=== PATIENT | male | born 1990 ===

== ENCOUNTER 2017-03-18 09:31 | Emergency (ER) | payer OTHER ==
[2017-03-18 09:33] VITALS: BMI 34.2
[2017-03-18 09:34] VITALS: BP 129/81; PULSE 88; RESP 17; TEMP 98.4; O2SAT 97
[2017-03-18] MEDS ORDERED: Albuterol-Ipratrop 3 mg / 0.5 (3 ml) UD INH STA (10:07)
--- NOTE | 2017-03-18 10:29 | RAD ---
HISTORY: Cough COMPARISON: 02/27/2014 TECHNIQUE: Chest PA and lateral FINDINGS: LUNGS: No active pulmonary disease. PLEURA: No significant pleural effusion identified. No pneumothorax apparent. CARDIOVASCULAR: Normal. OSSEOUS STRUCTURES: No significant abnormalities. VISUALIZED UPPER ABDOMEN: Normal. OTHER FINDINGS: None. IMPRESSION: No active disease.
--- NOTE | 2017-03-18 10:35 | ED PDOC ---
HPI: General Adult Time Seen by Provider: 03/18/17 09:55 Chief Complaint (Nursing): Flu-like Symptoms Chief Complaint (Provider): Cough History Per: Patient History/Exam Limitations: no limitations Onset/Duration Of Symptoms: Days (2) Additional History Per: Patient Additional Complaint(s): 26yo male, no past medical history, presents to ED for evaluation of cough, associated with clear sputum for the apst 2 dyas. Patient also reports associated chills, vomiting x1. He denies any diarrhea, abdominal pain or shortness of breath. No other complaints. Past Medical History Reviewed: Historical Data, Nursing Documentation, Vital Signs Vital Signs: Last Vital Signs Temp 98.4 F 03/18/17 09:49 Pulse 88 03/18/17 09:49 Resp 17 03/18/17 09:49 BP 129/81 03/18/17 09:49 Pulse Ox 97 03/21/17 00:03 - Medical History PMH: Asthma Denies: Bronchitis - Surgical History Surgical History: No Surg Hx - Family History Family History: States: No Known Family Hx, Unknown Family Hx - Home Medications Home Medications: Ambulatory Orders Medication Instructions Recorded Naproxen 500 mg PO Q12 #20 tab 02/19/14 Albuterol HFA [Ventolin HFA 90 1 puff IH Q4 PRN #1 unit 02/27/14 mcg/actuation (8 g)] Prednisone 10 mg PO BID #10 tab 02/27/14 Famotidine [Pepcid] 20 mg PO BID #28 tab 09/14/14 Mupirocin 2% Ointment [Bactroban 1 appl TP BID #1 tube 09/14/14 Ointment] Sulfamethoxazole/Trimethopri 1 tab PO BID #20 tab 09/14/14 [Bactrim Ds 800 mg-160 mg] Naproxen 500 mg PO BID #14 tablet 12/14/15 Albuterol Sulfate [Proair Hfa] 0.09 mg IH Q6H PRN #2 inh 03/22/16 Albuterol 0.083% [Albuterol 0.083% 3 ml IH Q6H PRN #30 neb 03/18/17 Inhal Areli (2.5 mg/3 ml) UD] Ibuprofen [Motrin] 600 mg PO Q6H PRN #20 tab 11/27/17 - Allergies Allergies/Adverse Reactions: Allergies Allergy/AdvReac Type Severity Reaction Status Date / Time strawberry Allergy RASH Verified 12/14/15 08:19 Review of Systems ROS Statement: Except As Marked, All Systems Reviewed And Found Negative Constitutional: Positive for: Chills Respiratory: Positive for: Cough, Sputum (clear). Negative for: Shortness of Breath Gastrointestinal: Positive for: Vomiting. Negative for: Abdominal Pain, Diarrhea Physical Exam - Reviewed Nursing Documentation Reviewed: Yes Vital Signs Reviewed: Yes - Physical Exam Appears: Positive for: Non-toxic, No Acute Distress Head Exam: Positive for: ATRAUMATIC, NORMAL INSPECTION, NORMOCEPHALIC Skin: Positive for: Normal Color Eye Exam: Positive for: Normal appearance, EOMI, PERRL Neck: Positive for: Normal, Supple Cardiovascular/Chest: Positive for: Regular Rate, Rhythm. Negative for: Murmur Respiratory: Positive for: Normal Breath Sounds. Negative for: Respiratory Distress Gastrointestinal/Abdominal: Positive for: Soft. Negative for: Tenderness, Guarding, Rebound Neurologic/Psych: Positive for: Alert, Oriented. Negative for: Motor/Sensory Deficits - ECG O2 Sat by Pulse Oximetry: 97 (RA) Pulse Ox Interpretation: Normal Medical Decision Making Medical Decision Making: Time: 1003 Impression: Rule out flu, viral syndrome, bronchitis, URI Plan: -- Rapid flu -- Chest x-ray -- Duoneb 3ml INH Reassess Scribe Attestation: Documented by Alba Marx acting as a scribe for Gabriella Sawyer MD. Provider Attestation: All medical record entries made by the Scribe were at my direction and personally dictated by me. I have reviewed the chart and agree that the record accurately reflects my personal performance of the history, physical exam, medical decision making, and the department course for this patient. I have also personally directed, reviewed, and agree with the discharge instructions and disposition. Disposition - Clinical Impression Clinical Impression: Viral syndrome - Disposition Referrals: [facility] [Outside] Disposition: Routine/Home Disposition Time: 13:46 Condition: STABLE Prescriptions: Albuterol 0.083% [Albuterol 0.083% Inhal Areli (2.5 mg/3 ml) UD] 3 ml IH Q6H PRN # 30 neb PRN Reason: Shortness Of Breath Ibuprofen [Motrin] 600 mg PO Q6H PRN #20 tab PRN Reason: Pain, Moderate (4-7) Instructions: How to Stop Smoking (ED), Viral Syndrome (ED) Forms: [facility] (Sudanese), [facility] ED School/Work Excuse
[2017-03-18] MEDS ORDERED: Albuterol-Ipratrop 3 mg / 0.5 (3 ml) UD ONE (11:14)
== END 2017-03-18 13:56 | disposition home or self-care (01) ==
LOC: H.ER 09:31
DX: B34.9 Viral infection, unspecified (principal); J45.909 Unspecified asthma, uncomplicated

== ENCOUNTER 2017-08-09 06:13 | Emergency (ER) | payer OTHER ==
[2017-08-09 06:14] VITALS: BMI 34.2
[2017-08-09 06:36] VITALS: TEMP 98.4
--- NOTE | 2017-08-09 07:24 | ED PDOC ---
HPI: Chest Pain Time Seen by Provider: 08/09/17 07:15 Chief Complaint (Nursing): Chest Pain Chief Complaint (Provider): Ches Pain History Per: Patient History/Exam Limitations: no limitations Onset/Duration Of Symptoms: Days (x 4) Current Symptoms Are (Timing): Intermittent Episodes Additional Complaint(s): Singh Hernandez is a 26 y/o male with a past medical history of Asthma, who presents to the ED complaining of intermittent episodes of left sided chest pain associated with arm pain, onset 4 days ago. Patient denies any shortness of breath or nausea. PCP: non provided Past Medical History Reviewed: Historical Data, Nursing Documentation, Vital Signs Vital Signs: Last Vital Signs Temp 98.4 F 08/09/17 06:21 Pulse 74 08/09/17 08:44 Resp 16 08/09/17 08:44 BP 122/74 08/09/17 08:44 Pulse Ox 95 08/09/17 11:33 - Medical History PMH: Asthma Denies: Bronchitis - Surgical History Surgical History: No Surg Hx - Family History Family History: States: Unknown Family Hx - Social History Current smoker - smoking cessation education provided: Yes Alcohol: Social Drugs: Cocaine - Home Medications Home Medications: Ambulatory Orders Medication Instructions Recorded Naproxen 500 mg PO Q12 #20 tab 02/19/14 Albuterol HFA [Ventolin HFA 90 1 puff IH Q4 PRN #1 unit 02/27/14 mcg/actuation (8 g)] Prednisone 10 mg PO BID #10 tab 02/27/14 Famotidine [Pepcid] 20 mg PO BID #28 tab 09/14/14 Mupirocin 2% Ointment [Bactroban 1 appl TP BID #1 tube 09/14/14 Ointment] Sulfamethoxazole/Trimethopri 1 tab PO BID #20 tab 09/14/14 [Bactrim Ds 800 mg-160 mg] Naproxen 500 mg PO BID #14 tablet 12/14/15 Albuterol Sulfate [Proair Hfa] 0.09 mg IH Q6H PRN #2 inh 03/22/16 Albuterol 0.083% [Albuterol 0.083% 3 ml IH Q6H PRN #30 neb 03/18/17 Inhal Areli (2.5 mg/3 ml) UD] Ibuprofen [Motrin] 600 mg PO Q6H PRN #20 tab 03/18/17 Naproxen [Naprosyn] 500 mg PO BID PRN #15 tablet 08/09/17 - Allergies Allergies/Adverse Reactions: Allergies Allergy/AdvReac Type Severity Reaction Status Date / Time strawberry Allergy RASH Verified 12/14/15 08:19 SHIKHA Risk Score for UA/NSTEMI - SHIKHA Risk Score Age > 64: NO 3 or more CAD Risk Factors: NO Known CAD (Stenosis greater than 50%): NO Aspirin use in past 7 days: NO Severe Angina: NO EKG ST changes greater than 0.5mm: NO Positive Cardiac Marker: NO SHIKHA Score: 0 Risk %: 5% Wells Criteria for PE - Wells Criteria for Pulmonary Embolism Clinical Signs and Symptoms of DVT: No P.E is #1 Diagnosis, or Equally Likely: No Heart Rate >100: No Immobilization at least 3 days;Surgery previous 4 weeks: No Previous, objectively diagnosed PE or DVT: No Hemoptysis: No Malignancy w/treatment within 6 months, or palliative: No Total Score: 0 Review of Systems ROS Statement: Except As Marked, All Systems Reviewed And Found Negative Cardiovascular: Positive for: Chest Pain (left side) Respiratory: Negative for: Shortness of Breath Gastrointestinal: Negative for: Nausea Musculoskeletal: Positive for: Arm Pain (left side) Physical Exam - Reviewed Nursing Documentation Reviewed: Yes Vital Signs Reviewed: Yes - Physical Exam Appears: Positive for: Non-toxic, No Acute Distress Skin: Positive for: Normal Color, Warm, Dry Eye Exam: Positive for: Normal appearance, EOMI, PERRL Neck: Positive for: Supple Cardiovascular/Chest: Positive for: Regular Rate, Rhythm, Other (tenderness with palpation of left anterior chest wall). Negative for: Chest Non Tender, Murmur Respiratory: Positive for: Normal Breath Sounds. Negative for: Respiratory Distress Gastrointestinal/Abdominal: Positive for: Normal Exam, Soft. Negative for: Tenderness Extremity: Positive for: Normal ROM. Negative for: Tenderness Neurologic/Psych: Positive for: Alert, Oriented - Laboratory Results Result Diagrams: 08/09/17 07:38 08/09/17 07:38 - ECG Interpretation Of ECG: NSR @ 82, no ST-T changes. O2 Sat by Pulse Oximetry: 95 (RA) Pulse Ox Interpretation: Normal Medical Decision Making Medical Decision Making: Time:719 Initial Impression: atypical chest pain, costochondritis, muscular or skeletal pain Initial Plan: --EKG --CMP --Troponin --Urine dipstick --CBC --D Dimer (COAG) --PTT --Prothrombin Time --Chest two views Time: 922 Chest X-Ray FINDINGS: LUNGS: No active pulmonary disease. PLEURA: No significant pleural effusion identified. No pneumothorax apparent. CARDIOVASCULAR: Normal. OSSEOUS STRUCTURES: No significant abnormalities. VISUALIZED UPPER ABDOMEN: Normal. OTHER FINDINGS: None. IMPRESSION: No active disease. Scribe Attestation: Documented by Brianna Quiñonez, acting as a scribe for Gabriella Sawyer MD. Provider Scribe Attestation: All medical record entries made by the Scribe were at my direction and personally dictated by me. I have reviewed the chart and agree that the record accurately reflects my personal performance of the history, physical exam, medical decision making, and the department course for this patient. I have also personally directed, reviewed, and agree with the discharge instructions and disposition. Disposition - Clinical Impression Clinical Impression: Atypical chest pain - Disposition Referrals: [facility] [Outside] Disposition: Routine/Home Disposition Time: 08:30 Condition: STABLE Prescriptions: Naproxen [Naprosyn] 500 mg PO BID PRN #15 tablet PRN Reason: Pain, Moderate (4-7) Instructions: Chest Pain Forms: [employer] [facility] (Kyrgyz), [facility] ED School/Work Excuse
[2017-08-09 07:51] LABS: BASO % 0.5 % (0.0-2.0); EOS % 0.8 % (0.0-4.0); HEMOGLOBIN 15.2 g/dL (12.0-18.0); LYMPH # 1.5 K/uL (1.0-4.3); LYMPH % 24.4 % (20.0-40.0); MEAN CELL VOLUME 88.7 fl (80.0-94.0); MEAN CORPUSCULAR HEMOGLOBIN 30.9 pg (27.0-31.0); MEAN CORPUSCULAR HGB CONC 34.8 g/dL (33.0-37.0); MEAN PLATELET VOLUME 7.4 fl (7.2-11.7); MONO # 0.6 K/uL (0.0-0.8); MONO % 9.3 % (0.0-10.0); NEUT # 3.9 K/uL (1.8-7.0); NRBC % 0.1 % (0.0-0.0); RBC 4.93 Mil/uL (4.40-5.90); RED CELL DISTRIBUTION WIDTH 12.7 % (11.5-14.5)
[2017-08-09 08:00] LABS: ALB/GLOB RATIO 1.2 (1.0-2.1); ALBUMIN 4.4 g/dL (3.5-5.0); ALT/SGPT 50 U/L (21-72); AST/SGOT 44 U/L (17-59); BLOOD UREA NITROGEN 15 mg/dl (9-20); CALCIUM 9.6 mg/dL (8.4-10.2); GFR AFRICAN-AMERICAN > 60; GFR NON-AFRICAN AMERICAN > 60
[2017-08-09 08:09] LABS: INR 1.2 (0.9-1.2); PARTIAL THROMBOPLASTIN TIME 30.2 Seconds (25.6-37.1)
[2017-08-09 08:47] VITALS: BP 122/74; PULSE 74; RESP 16
--- NOTE | 2017-08-09 09:24 | RAD ---
HISTORY: CP COMPARISON: Chest radiograph dated 03/18/2017 TECHNIQUE: Chest PA and lateral FINDINGS: LUNGS: No active pulmonary disease. PLEURA: No significant pleural effusion identified. No pneumothorax apparent. CARDIOVASCULAR: Normal. OSSEOUS STRUCTURES: No significant abnormalities. VISUALIZED UPPER ABDOMEN: Normal. OTHER FINDINGS: None. IMPRESSION: No active disease.
[2017-08-09 11:33] VITALS: O2SAT 95
--- NOTE | 2017-08-10 11:34 | CARD ---
APPROVED REPORT EKG Measurement Heart [id number] <Conclusion> Normal sinus rhythm Normal ECG
== END 2017-08-09 08:46 | disposition home or self-care (01) ==
LOC: H.ER 06:13
DX: R07.9 Chest pain, unspecified (principal); F17.200 Nicotine dependence, unspecified, uncomplicated; J45.909 Unspecified asthma, uncomplicated

== ENCOUNTER 2017-08-22 17:52 | Emergency (ER) | payer SELFPAY ==
[2017-08-22 17:52] VITALS: BMI 34.2
[2017-08-22 18:01] VITALS: TEMP 97.8
[2017-08-22] MEDS ORDERED: Albuterol-Ipratrop 3 mg / 0.5 (3 ml) UD INH STA ×2 (18:40→20:18)
--- NOTE | 2017-08-22 19:37 | ED PDOC ---
HPI: Chest Pain Time Seen by Provider: 08/22/17 18:00 Chief Complaint (Nursing): Chest Pain Chief Complaint (Provider): Chest Pain History Per: Patient History/Exam Limitations: no limitations Onset/Duration Of Symptoms: Hrs Current Symptoms Are (Timing): Still Present Additional Complaint(s): 26 year old male with a past medical history of asthma, presents to the ED with complaints of chest tightness and shortness of breath, onset one day. Patient reports he was outside today during the day and with heat he began to feel chest tightness and shortness of breath. Denies fever, cough, or vomiting. PMD: None Past Medical History Reviewed: Historical Data, Nursing Documentation, Vital Signs Vital Signs: Last Vital Signs Temp 97.8 F 08/22/17 17:57 Pulse 82 08/22/17 22:02 Resp 16 08/22/17 22:02 BP 127/67 08/22/17 22:02 Pulse Ox 98 08/22/17 22:02 - Medical History PMH: Asthma Denies: Bronchitis - Surgical History Other surgeries: Right Ankle Surgery (2005). Stomach Scraping - Family History Family History: States: Unknown Family Hx - Social History Current smoker - smoking cessation education provided: Yes (Heavy Smoker > 10 cigarettes daily) Ex-Smoker (has not smoked in the last 12 months): No Alcohol: Occasional Drugs: Denies - Home Medications Home Medications: Ambulatory Orders Medication Instructions Recorded Naproxen 500 mg PO Q12 #20 tab 02/19/14 Albuterol HFA [Ventolin HFA 90 1 puff IH Q4 PRN #1 unit 02/27/14 mcg/actuation (8 g)] Prednisone 10 mg PO BID #10 tab 02/27/14 Famotidine [Pepcid] 20 mg PO BID #28 tab 09/14/14 Mupirocin 2% Ointment [Bactroban 1 appl TP BID #1 tube 09/14/14 Ointment] Sulfamethoxazole/Trimethopri 1 tab PO BID #20 tab 09/14/14 [Bactrim Ds 800 mg-160 mg] Naproxen 500 mg PO BID #14 tablet 12/14/15 Albuterol Sulfate [Proair Hfa] 0.09 mg IH Q6H PRN #2 inh 03/22/16 Albuterol 0.083% [Albuterol 0.083% 3 ml IH Q6H PRN #30 neb 03/18/17 Inhal Areli (2.5 mg/3 ml) UD] Ibuprofen [Motrin] 600 mg PO Q6H PRN #20 tab 03/18/17 Naproxen [Naprosyn] 500 mg PO BID PRN #15 tablet 08/09/17 - Allergies Allergies/Adverse Reactions: Allergies Allergy/AdvReac Type Severity Reaction Status Date / Time strawberry Allergy RASH Verified 08/22/17 17:57 SHIKHA Risk Score for UA/NSTEMI - SHIKHA Risk Score Age > 64: NO 3 or more CAD Risk Factors: NO Known CAD (Stenosis greater than 50%): NO Aspirin use in past 7 days: NO Severe Angina: NO EKG ST changes greater than 0.5mm: NO SHIKHA Score: 0 Risk %: 5% Review of Systems ROS Statement: Except As Marked, All Systems Reviewed And Found Negative Cardiovascular: Positive for: Chest Pain Respiratory: Positive for: Shortness of Breath Physical Exam - Reviewed Nursing Documentation Reviewed: Yes Vital Signs Reviewed: Yes - Physical Exam Appears: Positive for: Non-toxic, No Acute Distress Head Exam: Positive for: ATRAUMATIC, NORMOCEPHALIC Skin: Positive for: Normal Color, Warm, Dry Eye Exam: Positive for: EOMI, Normal appearance, PERRL ENT: Positive for: Normal ENT Inspection Neck: Positive for: Normal, Painless ROM, Supple Cardiovascular/Chest: Positive for: Regular Rate, Rhythm. Negative for: Murmur Respiratory: Positive for: Normal Breath Sounds. Negative for: Respiratory Distress Gastrointestinal/Abdominal: Positive for: Normal Exam, Soft. Negative for: Tenderness Back: Positive for: Normal Inspection. Negative for: L CVA Tenderness, R CVA Tenderness, Vertebral Tenderness Extremity: Positive for: Normal ROM. Negative for: Pedal Edema, Deformity Neurologic/Psych: Positive for: Alert, Oriented. Negative for: Motor/Sensory Deficits - ECG ECG Rhythm: Positive for: Sinus Rhythm (At 81 bpm) O2 Sat by Pulse Oximetry: 97 (RA) Pulse Ox Interpretation: Normal Medical Decision Making Medical Decision Making: Time: 1840 Impression: shortness of breath Likely Reactive Airway Disease Plan: -- Peak Flow Pre/Post Treatment -- Try Duoneb -- Monitor for Improvement Time: 1934 -- Currently, patient reports he feels improved. oxygen sat normal, vitals stable. pt in no respiratory distress, no labored breathing or tachypnea. pt ambulating around the ED in no distress. Time: 2025 -- Patient has improved and will be discharged home, states he has an albuterol pump at home he can use. Scribe Attestation: Documented by Giovana Haas, acting as a scribe for Dr. Raghav Marquez MD. Provider Scribe Attestation: All medical record entries made by the Scribe were at my direction and personally dictated by me. I have reviewed the chart and agree that the record accurately reflects my personal performance of the history, physical exam, medical decision making, and the department course for this patient. I have also personally directed, reviewed, and agree with the discharge instructions and disposition. Disposition - Clinical Impression Clinical Impression: Asthma - Patient ED Disposition Is Patient to be Admitted: No Counseled Patient/Family Regarding: Studies Performed, Diagnosis, Need For Followup - Disposition Referrals: [facility] [Outside] [facility] [Outside] Disposition: Routine/Home Disposition Time: 20:00 Condition: IMPROVED Additional Instructions: follow up with your doctor in 1-2 days continue albuterol at home as needed return to ED with any worsening or concerning symptoms Instructions: Asthma in Adults Forms: [facility] (New Zealander), [facility] ED School/Work Excuse
[2017-08-22] MEDS ORDERED: Albuterol-Ipratrop 3 mg / 0.5 (3 ml) UD ONE (20:29)
[2017-08-22 20:33] VITALS: PULSE 82; RESP 16
[2017-08-22 22:02] VITALS: BP 127/67
[2017-08-22 22:40] VITALS: O2SAT 97
== END 2017-08-22 21:58 | disposition home or self-care (01) ==
LOC: H.ER 17:52
DX: J45.909 Unspecified asthma, uncomplicated (principal); F17.210 Nicotine dependence, cigarettes, uncomplicated

== ENCOUNTER 2018-05-15 15:26 | Emergency (ER) | payer OTHER ==
[2018-05-15 15:27] VITALS: BMI 34.2
[2018-05-15 15:42] VITALS: O2SAT 100
[2018-05-15] MEDS ORDERED: Albuterol-Ipratrop 3 mg / 0.5 (3 ml) UD INH STA (15:54)
[2018-05-15] MEDS ORDERED: Albuterol-Ipratrop 3 mg / 0.5 (3 ml) UD ONE (15:58)
--- NOTE | 2018-05-15 16:23 | RAD ---
Date of service: 05/15/2018 HISTORY: cough COMPARISON: Chest radiograph dated 08/09/2017. TECHNIQUE: Chest PA and lateral FINDINGS: LUNGS: No active pulmonary disease. PLEURA: No significant pleural effusion identified. No pneumothorax apparent. CARDIOVASCULAR: No aortic atherosclerotic calcification present. Normal cardiac size. No pulmonary vascular congestion. OSSEOUS STRUCTURES: No significant abnormalities. VISUALIZED UPPER ABDOMEN: Normal. OTHER FINDINGS: None. IMPRESSION: No active disease.
--- NOTE | 2018-05-15 16:56 | ED PDOC ---
HPI: SOB/CHF/COPD Time Seen by Provider: 05/15/18 15:42 Chief Complaint (Nursing): Shortness Of Breath History Per: Patient Additional Complaint(s): Pt. states for the past week he's had cough, congestion, and tactile fever for 1 week but has improved with OTC meds. States for the past 2 days he's developed chest tightness and wheezing. Has been using his albuterol inhaler and nebulizer with transient relief. Wheezing and chest tightness currently not present. Denie s hemoptysis, chest pain, previous intubations for asthma, previous admissions for asthma, sick contacts. Past Medical History Reviewed: Historical Data, Nursing Documentation, Vital Signs Vital Signs: Last Vital Signs Temp 98.3 F 05/15/18 15:40 Pulse 85 05/15/18 15:40 Resp 18 05/15/18 15:40 BP 140/86 05/15/18 15:40 Pulse Ox 100 05/15/18 15:40 - Medical History PMH: Asthma Denies: Bronchitis - Family History Family History: States: No Known Family Hx - Social History Current smoker - smoking cessation education provided: Yes - Home Medications Home Medications: Ambulatory Orders Medication Instructions Recorded Naproxen 500 mg PO Q12 #20 tab 02/19/14 Albuterol HFA [Ventolin HFA 90 1 puff IH Q4 PRN #1 unit 02/27/14 mcg/actuation (8 g)] Prednisone 10 mg PO BID #10 tab 02/27/14 Famotidine [Pepcid] 20 mg PO BID #28 tab 09/14/14 Mupirocin 2% Ointment [Bactroban 1 appl TP BID #1 tube 09/14/14 Ointment] Sulfamethoxazole/Trimethopri 1 tab PO BID #20 tab 09/14/14 [Bactrim Ds 800 mg-160 mg] Naproxen 500 mg PO BID #14 tablet 12/14/15 Albuterol Sulfate [Proair Hfa] 0.09 mg IH Q6H PRN #2 inh 03/22/16 Albuterol 0.083% [Albuterol 0.083% 3 ml IH Q6H PRN #30 neb 03/18/17 Inhal Areli (2.5 mg/3 ml) UD] Ibuprofen [Motrin] 600 mg PO Q6H PRN #20 tab 03/18/17 Naproxen [Naprosyn] 500 mg PO BID PRN #15 tablet 08/09/17 Azithromycin [Zithromax] 250 mg PO DAILY #6 tab 05/15/18 Prednisone [Deltasone] 3 tab PO DAILY #12 tablet 05/15/18 - Allergies Allergies/Adverse Reactions: Allergies Allergy/AdvReac Type Severity Reaction Status Date / Time strawberry Allergy RASH Verified 08/22/17 17:57 Wells Criteria for PE - Wells Criteria for Pulmonary Embolism Clinical Signs and Symptoms of DVT: No P.E is #1 Diagnosis, or Equally Likely: No Heart Rate >100: No Immobilization at least 3 days;Surgery previous 4 weeks: No Previous, objectively diagnosed PE or DVT: No Hemoptysis: No Malignancy w/treatment within 6 months, or palliative: No Total Score: 0 Review of Systems ROS Statement: Except As Marked, All Systems Reviewed And Found Negative Respiratory: Positive for: Cough, Wheezing Physical Exam - Physical Exam Appears: Positive for: Well, Non-toxic, No Acute Distress Skin: Positive for: Normal Color, Warm. Negative for: Rash Eye Exam: Positive for: Normal appearance Neck: Positive for: Normal, Painless ROM Cardiovascular/Chest: Positive for: Regular Rate, Rhythm Respiratory: Positive for: Wheezing (minimal b/l expiratory wheezing). Negative for: Respiratory Distress Gastrointestinal/Abdominal: Positive for: Soft. Negative for: Tenderness Back: Negative for: L CVA Tenderness, R CVA Tenderness Neurologic/Psych: Positive for: Alert, Oriented (x3) - ECG O2 Sat by Pulse Oximetry: 100 - Radiology X-Ray: Interpreted by Me (CXR) X-Ray Interpretation: No Acute Disease - Progress ED Course And Treament: Duoneb x1, prednisone 60mg PO, CXR ordered. Re-evaluation Time: 17:00 (Lungs clear b/l. Reports good relief of wheezing. ) Condition: Re-examined, Improved Disposition - Clinical Impression Clinical Impression: Bronchospasm, acute - Patient ED Disposition Is Patient to be Admitted: No - Disposition Referrals: [facility] [Outside] Disposition: Routine/Home Disposition Time: 17:01 Condition: IMPROVED Additional Instructions: FOLLOW UP WITH [facility] FOR FURTHER EVALUATION RETURN TO ED IMMEDIATELY IF SYMPTOMS WORSEN MANJIT LYNCH JR, thank you for letting us take care of you today. Your provider was Wilfredo Jose III DO and you were treated for SOB. The emergency medical care you received today was directed at your acute symptoms. If you were prescribed any medication, please fill it and take as directed. It may take several days for your symptoms to resolve. Return to the Emergency Department if your symptoms worsen, do not improve, or if you have any other problems. Please contact your doctor or call one of the physicians/clinics you have been referred to that are listed on the Patient Visit Information form that is included in your discharge packet. Bring any paperwork you were given at discharge with you along with any medications you are taking to your follow up visit. Our treatment cannot replace ongoing medical care by a primary care provider outside of the emergency department. Thank you for allowing the [facility] team to be part of your care today. If you had an X-Ray or CT scan: A Radiologist will review the ED reading if any change in treatment is needed we will contact you. If you had a blood, urine, or wound culture: It will take several days for the results, if any change in treatment is needed we will contact you. If you had an STI test: It will take 48 hours for the results. Please call after 1 week if you have not heard back. Prescriptions: Azithromycin [Zithromax] 250 mg PO DAILY #6 tab Prednisone [Deltasone] 3 tab PO DAILY #12 tablet Instructions: Asthma, Adult (DC) Forms: [employer] (Yakut) Print Language: SALVADOREAN
[2018-05-15 17:49] VITALS: BP 146/80; PULSE 88; RESP 16; TEMP 98
--- NOTE | 2018-05-16 07:24 | CARD ---
APPROVED REPORT Date of service: 05/15/2018 EKG Measurement Heart [id number] <Conclusion> Normal sinus rhythm Normal ECG
== END 2018-05-15 17:48 | disposition home or self-care (01) ==
LOC: H.ER 15:26
DX: J98.01 Acute bronchospasm (principal)

== ENCOUNTER 2018-07-10 14:17 | Emergency (ER) | payer OTHER ==
[2018-07-10 14:18] VITALS: BMI 34.2
[2018-07-10 14:50] VITALS: RESP 16
[2018-07-10] MEDS ORDERED: Albuterol-Ipratrop 3 mg / 0.5 (3 ml) UD INH STA (15:04)
--- NOTE | 2018-07-10 15:06 | ED PDOC ---
HPI: General Adult Time Seen by Provider: 07/10/18 15:05 Chief Complaint (Nursing): Chest Pain Chief Complaint (Provider): CP History Per: Patient (27 YO MALE H/O ASTHMA HERE FOR CHEST PAIN NOTED WITH INSPIRATORY EFFORT AFTER PLAYING BASKETBALL A FEW DAYS AGO. NOTES PAIN WAS FIRST ON RIGHT SIDE AND THEN ON LEFT. ATTEMPTED USE OF INHALER WITHOUT RELIEF. ADMITS SMOKING. DENIES ANY TRAUMA.) Past Medical History Reviewed: Historical Data, Nursing Documentation, Vital Signs Vital Signs: Last Vital Signs Temp 99 F 07/10/18 14:45 Pulse 85 07/10/18 14:45 Resp 16 07/10/18 14:45 BP 110/77 07/10/18 14:45 Pulse Ox 100 07/10/18 14:45 - Medical History PMH: Asthma Denies: Bronchitis - Family History Family History: States: Unknown Family Hx - Home Medications Home Medications: Ambulatory Orders Medication Instructions Recorded Naproxen 500 mg PO Q12 #20 tab 02/19/14 Albuterol HFA [Ventolin HFA 90 1 puff IH Q4 PRN #1 unit 02/27/14 mcg/actuation (8 g)] Prednisone 10 mg PO BID #10 tab 02/27/14 Famotidine [Pepcid] 20 mg PO BID #28 tab 09/14/14 Mupirocin 2% Ointment [Bactroban 1 appl TP BID #1 tube 09/14/14 Ointment] Sulfamethoxazole/Trimethopri 1 tab PO BID #20 tab 09/14/14 [Bactrim Ds 800 mg-160 mg] Naproxen 500 mg PO BID #14 tablet 12/14/15 Albuterol Sulfate [Proair Hfa] 0.09 mg IH Q6H PRN #2 inh 03/22/16 Albuterol 0.083% [Albuterol 0.083% 3 ml IH Q6H PRN #30 neb 03/18/17 Inhal Areli (2.5 mg/3 ml) UD] Ibuprofen [Motrin] 600 mg PO Q6H PRN #20 tab 03/18/17 Naproxen [Naprosyn] 500 mg PO BID PRN #15 tablet 08/09/17 Azithromycin [Zithromax] 250 mg PO DAILY #6 tab 05/15/18 Prednisone [Deltasone] 3 tab PO DAILY #12 tablet 05/15/18 Albuterol HFA [Ventolin HFA 90 2 puff IH [id number] PRN #1 inh 07/10/18 mcg/actuation (8 g)] Naproxen 375 mg PO Q8 PRN #21 tablet 07/10/18 predniSONE [predniSONE Tab] 2 tab PO DAILY #8 tab 07/10/18 - Allergies Allergies/Adverse Reactions: Allergies Allergy/AdvReac Type Severity Reaction Status Date / Time strawberry Allergy RASH Verified 08/22/17 17:57 Review of Systems ROS Statement: Except As Marked, All Systems Reviewed And Found Negative Cardiovascular: Positive for: Chest Pain Physical Exam - Reviewed Nursing Documentation Reviewed: Yes Vital Signs Reviewed: Yes - Physical Exam Appears: Positive for: Well, Non-toxic, No Acute Distress Head Exam: Positive for: ATRAUMATIC, NORMAL INSPECTION, NORMOCEPHALIC Skin: Positive for: Normal Color, Warm, DRY Eye Exam: Positive for: EOMI, Normal appearance, PERRL ENT: Positive for: Normal ENT Inspection Neck: Positive for: Normal, Painless ROM Cardiovascular/Chest: Positive for: Regular Rate, Rhythm Respiratory: Positive for: Normal Breath Sounds, Decreased Breath Sounds Gastrointestinal/Abdominal: Positive for: Normal Exam, Soft Back: Positive for: Normal Inspection Extremity: Positive for: Normal ROM Neurological/Psych: Positive for: Awake, Alert, Normal Tone - Laboratory Results Result Diagrams: 07/10/18 16:55 07/10/18 16:55 - ECG ECG Rhythm: Positive for: Sinus Rhythm (NSR 87BPM; NO ECTOPY NO ACUTE CHANGES.) O2 Sat by Pulse Oximetry: 100 - Progress ED Course And Treament: cxr: nad Disposition - Clinical Impression Clinical Impression: Chest pain, Asthma - Patient ED Disposition Is Patient to be Admitted: No - Disposition Disposition: Routine/Home Disposition Time: 19:15 Condition: FAIR Prescriptions: Albuterol HFA [Ventolin HFA 90 mcg/actuation (8 g)] 2 puff IH [id number] PRN #1 inh PRN Reason: Shortness Of Breath Naproxen 375 mg PO Q8 PRN #21 tablet PRN Reason: Pain, Moderate (4-7) predniSONE [predniSONE Tab] 2 tab PO DAILY #8 tab Instructions: Asthma in Adults, Chest Pain Forms: [employer] (Kiswahili)
[2018-07-10] MEDS ORDERED: Albuterol-Ipratrop 3 mg / 0.5 (3 ml) UD ONE (15:32)
[2018-07-10 17:02] LABS: BASO % 0.7 % (0.0-2.0); EOS # 0.1 K/uL (0.0-0.7); EOS % 2.2 % (0.0-4.0); HEMOGLOBIN 15.1 g/dL (12.0-18.0); LYMPH # 2.2 K/uL (1.0-4.3); LYMPH % 33.5 % (20.0-40.0); MEAN CELL VOLUME 87.8 fl (80.0-94.0); MEAN CORPUSCULAR HEMOGLOBIN 30.7 pg (27.0-31.0); MEAN CORPUSCULAR HGB CONC 34.9 g/dL (33.0-37.0); MEAN PLATELET VOLUME 7.1 fl (7.2-11.7); MONO # 0.5 K/uL (0.0-0.8); MONO % 7.1 % (0.0-10.0); NEUT # 3.7 K/uL (1.8-7.0); NEUT % 56.5 % (50.0-75.0); NRBC % 0.3 % (0.0-0.0); RBC 4.92 Mil/uL (4.40-5.90); RED CELL DISTRIBUTION WIDTH 12.8 % (11.5-14.5); WHITE BLOOD COUNT 6.6 K/uL (4.8-10.8)
[2018-07-10 17:19] LABS: BLOOD UREA NITROGEN 18 mg/dl (9-20); CALCIUM 9.1 mg/dL (8.4-10.2); GFR NON-AFRICAN AMERICAN > 60
--- NOTE | 2018-07-10 17:35 | RAD ---
Date of service: 07/10/2018 HISTORY: Chest and flank pain 2 days duration. COMPARISON: 05/15/2018 TECHNIQUE: Chest PA and lateral FINDINGS: LUNGS: No active pulmonary disease. PLEURA: No significant pleural effusion identified. No pneumothorax apparent. CARDIOVASCULAR: No aortic atherosclerotic calcification present. Normal cardiac size. No pulmonary vascular congestion. OSSEOUS STRUCTURES: No significant abnormalities. VISUALIZED UPPER ABDOMEN: Normal. OTHER FINDINGS: None. IMPRESSION: No active disease. No significant interval change compared to the prior examination(s).
[2018-07-10 17:40] LABS: ALB/GLOB RATIO 1.1 (1.0-2.1); ALBUMIN 4.3 g/dL (3.5-5.0); ALT/SGPT 34 U/L (21-72); AST/SGOT 55 U/L (17-59)
[2018-07-10 18:56] VITALS: BP 128/71; PULSE 69; TEMP 98.3
[2018-07-10 19:13] VITALS: O2SAT 100
--- NOTE | 2018-07-11 22:36 | CARD ---
APPROVED REPORT Date of service: 07/10/2018 EKG Measurement Heart [id number] <Conclusion> Normal sinus rhythm Normal ECG
== END 2018-07-10 19:20 | disposition home or self-care (01) ==
LOC: H.ER 14:17
DX: R07.89 Other chest pain (principal); J45.909 Unspecified asthma, uncomplicated
CPT/HCPCS: 71046; 80053; 84484; 85025; 85378; 93005; 96374; 99283; J1885

== ENCOUNTER 2018-07-19 11:13 | Emergency (ER) | payer OTHER ==
[2018-07-19 11:17] VITALS: BMI 33.0
--- NOTE | 2018-07-19 13:15 | ED PDOC ---
Lower Extremity Pain/Injury Time Seen by Provider: 07/19/18 11:24 Chief Complaint (Nursing): Lower Extremity Problem/Injury Chief Complaint (Provider): right leg swelling History Per: Patient History/Exam Limitations: no limitations Current Symptoms Are (Timing): Still Present Severity: Moderate Additional Complaint(s): 27yo male c/o R calf pain and swelling, notes his brother noticed "veins" popping out, denies history blood clots, denies chest pain or SOB. Denies trauma to leg. Past Medical History Reviewed: Historical Data, Nursing Documentation, Vital Signs Vital Signs: Last Vital Signs Temp 98.5 F 07/19/18 11:17 Pulse 88 07/19/18 11:17 Resp 17 07/19/18 11:17 BP 137/84 07/19/18 11:17 Pulse Ox 97 07/19/18 11:17 - Medical History PMH: Asthma Denies: Bronchitis - Family History Family History: States: Unknown Family Hx - Living Arrangements Living Arrangements: With Family - Social History Current smoker - smoking cessation education provided: Yes - Home Medications Home Medications: Ambulatory Orders Medication Instructions Recorded Naproxen 500 mg PO Q12 #20 tab 02/19/14 Albuterol HFA [Ventolin HFA 90 1 puff IH Q4 PRN #1 unit 02/27/14 mcg/actuation (8 g)] Prednisone 10 mg PO BID #10 tab 02/27/14 Famotidine [Pepcid] 20 mg PO BID #28 tab 09/14/14 Mupirocin 2% Ointment [Bactroban 1 appl TP BID #1 tube 09/14/14 Ointment] Sulfamethoxazole/Trimethopri 1 tab PO BID #20 tab 09/14/14 [Bactrim Ds 800 mg-160 mg] Naproxen 500 mg PO BID #14 tablet 12/14/15 Albuterol Sulfate [Proair Hfa] 0.09 mg IH Q6H PRN #2 inh 03/22/16 Albuterol 0.083% [Albuterol 0.083% 3 ml IH Q6H PRN #30 neb 03/18/17 Inhal Areli (2.5 mg/3 ml) UD] Ibuprofen [Motrin] 600 mg PO Q6H PRN #20 tab 03/18/17 Naproxen [Naprosyn] 500 mg PO BID PRN #15 tablet 08/09/17 Azithromycin [Zithromax] 250 mg PO DAILY #6 tab 05/15/18 Prednisone [Deltasone] 3 tab PO DAILY #12 tablet 05/15/18 Albuterol HFA [Ventolin HFA 90 2 puff IH [id number] PRN #1 inh 07/10/18 mcg/actuation (8 g)] Naproxen 375 mg PO Q8 PRN #21 tablet 07/10/18 predniSONE [predniSONE Tab] 2 tab PO DAILY #8 tab 07/10/18 - Allergies Allergies/Adverse Reactions: Allergies Allergy/AdvReac Type Severity Reaction Status Date / Time strawberry Allergy RASH Verified 08/22/17 17:57 Review of Systems Constitutional: Negative for: Fever Cardiovascular: Negative for: Chest Pain, Palpitations Respiratory: Negative for: Cough, Shortness of Breath Gastrointestinal: Negative for: Abdominal Pain, Diarrhea Genitourinary Male: Negative for: Dysuria Musculoskeletal: Negative for: Neck Pain Skin: Negative for: Rash Neurological: Negative for: Weakness, Numbness Physical Exam - Reviewed Nursing Documentation Reviewed: Yes Vital Signs Reviewed: Yes - Physical Exam Appears: Positive for: Well, Non-toxic, No Acute Distress Head Exam: Positive for: ATRAUMATIC, NORMAL INSPECTION, NORMOCEPHALIC Skin: Positive for: Normal Color, Warm, DRY Eye Exam: Positive for: EOMI, Normal appearance, PERRL ENT: Positive for: Normal ENT Inspection Cardiovascular/Chest: Negative for: Tachycardia Respiratory: Negative for: Respiratory Distress Gastrointestinal/Abdominal: Positive for: Soft. Negative for: Tenderness, Guarding Back: Positive for: Normal Inspection Extremity: Positive for: Normal ROM Neurological/Psych: Positive for: Awake, Alert, Normal Tone, Oriented - ECG O2 Sat by Pulse Oximetry: 97 Medical Decision Making Medical Decision Making: duplex US ordered and negative for DVT DC from ED, followup PMD Disposition - Clinical Impression Clinical Impression: Varicose vein of leg, Leg swelling - Patient ED Disposition Is Patient to be Admitted: No Counseled Patient/Family Regarding: Studies Performed, Diagnosis, Need For Followup - Disposition Referrals: [facility] [Outside] Disposition: Routine/Home Disposition Time: 13:15 Condition: STABLE Additional Instructions: Use motrin or tylenol as directed and needed for pain. Followup with clinic for further testing. Instructions: Varicose Veins and Other Vein Disease in the Legs Forms: [facility] (Gibraltarian)
--- NOTE | 2018-07-19 13:16 | US ---
Date of service: 07/19/2018 PROCEDURE: Right lower extremity venous duplex Doppler. HISTORY: RLE swelling r/o DVT include calf COMPARISON: None available. TECHNIQUE: Common femoral, superficial femoral, popliteal and posterior tibial veins were evaluated. Flow was assessed with color Doppler, compressibility, assessment of phasic flow and augmentation response. FINDINGS: COMMON FEMORAL VEIN: Unremarkable. SUPERFICIAL FEMORAL VEIN: Unremarkable. POPLITEAL VEIN: Unremarkable. POSTERIOR TIBIAL VEIN: Unremarkable. OTHER FINDINGS: Varicose veins right calf present. IMPRESSION: No evidence of deep venous thrombosis in the right lower extremity. Varicose veins right calf present..
[2018-07-19 13:40] VITALS: BP 121/77; PULSE 74; RESP 20; TEMP 98
[2018-07-19 14:39] VITALS: O2SAT 97
== END 2018-07-19 13:40 | disposition home or self-care (01) ==
LOC: H.ER 11:13
DX: I83.813 Varicose veins of bilateral lower extremities with pain (principal); R60.0 Localized edema

== ENCOUNTER 2018-09-16 09:50 | Emergency (ER) | payer OTHER ==
[2018-09-16 10:09] VITALS: BMI 35.6
[2018-09-16 10:12] VITALS: BP 120/81; PULSE 81; RESP 17; TEMP 98.4; O2SAT 97
--- NOTE | 2018-09-16 11:03 | ED PDOC ---
Upper Extremity Pain/Injury Time Seen by Provider: 09/16/18 10:29 Chief Complaint (Nursing): Upper Extremity Problem/Injury Chief Complaint (Provider): right shoulder pain History Per: Patient History/Exam Limitations: no limitations Onset/Duration Of Symptoms: Days Additional Complaint(s): 28 yo M presents with right shoulder pain for 2 weeks, worse this morning. 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 Pt notes then yesterday he was moving a heavy dresser and woke up at 0300 with worsening pain. He took Motrin at that time with moderate relief, but when woke again the pain was back and even worse with movement. Pt notes he has some pain on the right side of his neck as well, worse with movement. Pt denies fever, chills, numbness or tingling, changes in skin color, chest pain, previous shoulder injury. PMD: Dr. Campbell Past Medical History Reviewed: Historical Data, Nursing Documentation, Vital Signs Vital Signs: Last Vital Signs Temp 98.4 F 09/16/18 10:09 Pulse 81 09/16/18 10:09 Resp 17 09/16/18 10:09 BP 120/81 09/16/18 10:09 Pulse Ox 97 09/16/18 10:09 Primary Care Provider: Abhinav Campbell - Medical History PMH: Asthma Denies: Bronchitis - Surgical History Other surgeries: ankle surgery - Family History Family History: States: Unknown Family Hx - Home Medications Home Medications: Ambulatory Orders Medication Instructions Recorded Naproxen 500 mg PO Q12 #20 tab 02/19/14 Albuterol HFA [Ventolin HFA 90 1 puff IH Q4 PRN #1 unit 02/27/14 mcg/actuation (8 g)] Prednisone 10 mg PO BID #10 tab 02/27/14 Famotidine [Pepcid] 20 mg PO BID #28 tab 09/14/14 Mupirocin 2% Ointment [Bactroban 1 appl TP BID #1 tube 09/14/14 Ointment] Sulfamethoxazole/Trimethopri 1 tab PO BID #20 tab 09/14/14 [Bactrim Ds 800 mg-160 mg] Naproxen 500 mg PO BID #14 tablet 12/14/15 Albuterol Sulfate [Proair Hfa] 0.09 mg IH Q6H PRN #2 inh 03/22/16 Albuterol 0.083% [Albuterol 0.083% 3 ml IH Q6H PRN #30 neb 03/18/17 Inhal Areli (2.5 mg/3 ml) UD] Ibuprofen [Motrin] 600 mg PO Q6H PRN #20 tab 03/18/17 Naproxen [Naprosyn] 500 mg PO BID PRN #15 tablet 08/09/17 Azithromycin [Zithromax] 250 mg PO DAILY #6 tab 05/15/18 Prednisone [Deltasone] 3 tab PO DAILY #12 tablet 05/15/18 Albuterol HFA [Ventolin HFA 90 2 puff IH [id number] PRN #1 inh 07/10/18 mcg/actuation (8 g)] Naproxen 375 mg PO Q8 PRN #21 tablet 07/10/18 predniSONE [predniSONE Tab] 2 tab PO DAILY #8 tab 07/10/18 Cyclobenzaprine [Cyclobenzaprine 10 mg PO TID PRN #12 tab 09/16/18 HCl] Ibuprofen [Motrin Tab] 600 mg PO Q6 PRN #20 tab 09/16/18 - Allergies Allergies/Adverse Reactions: Allergies Allergy/AdvReac Type Severity Reaction Status Date / Time strawberry Allergy RASH Verified 09/16/18 10:28 Review of Systems Constitutional: Negative for: Fever, Chills Cardiovascular: Negative for: Chest Pain Respiratory: Negative for: Cough Musculoskeletal: Positive for: Shoulder Pain. Negative for: Arm Pain Neurological: Negative for: Weakness, Numbness Physical Exam - Reviewed Nursing Documentation Reviewed: Yes Vital Signs Reviewed: Yes - Physical Exam Comments: GENERAL APPEARANCE: Patient is awake, alert, oriented x 3, in no acute distress. SKIN: Warm, dry; (-) cyanosis. NECK: (+) FROM, (-)midline tenderness (-)bony deformity (+) right trapezius muscle tenderness (+)spasm CHEST AND RESPIRATORY: (-) chest wall tenderness. Lungs: (-) rales, (-) rhonchi, (-) wheezes; breath sounds equal bilaterally. HEART AND CARDIOVASCULAR: (-) irregularity; (-) murmur, (-) gallop. EXTREMITIES: pulse + 2, capillary refill <2sec, RUE: (+) mild diffuse Tenderness to anterior and posterior shoulder (-) swelling, (-) ecchymosis(-) deformity (+)decrease flexion and abduction to 120 degrees of shoulder, otherwise FROM, strength 5/5 and equal bilateral upper extremities, motor and sensation intact (-) distal neurovascular deficit; Elbow, hand and digits: (-) tenderness. NEURO AND PSYCH: Mental status as above. - ECG O2 Sat by Pulse Oximetry: 97 Medical Decision Making Medical Decision Makin:28 initial eval - shoulder injury -- Xray -- Toradol IM -- Flexeril PO (pt is not driving home) -- re eval 11:25 Date of service: 09/16/2018 PROCEDURE: Radiographs of the Right Shoulder HISTORY: injury and pain COMPARISON: No prior. TECHNIQUE: 3 views obtained. FINDINGS: BONES: The apophysis appears unfused. Question if this is late fusion for this 28-year-old male patient or if no acute fracture appreciated. JOINTS: Normal. Glenohumeral and acromioclavicular joints preserved. No osteoarthritis. SOFT TISSUES: Normal. OTHER FINDINGS: None. IMPRESSION: No acute fracture or dislocation. Other findings as above. 11:40 spoke to radiologist, Dr. Ontiveros, notes it is a late fusion, not a fracture, can cause symptomatic pain informed pt of these findings 11:55 on re eval pt reports feeling improvement of pain, pain in neck/trapezius muscle is gone, continues with 5/10 shoulder pain, improved ROM Discussed results, diagnosis, treatment, return precautions and f/u with pt who is understanding, in agreement and stable for dc Disposition - Clinical Impression Clinical Impression: Shoulder injury, Shoulder pain - Patient ED Disposition Is Patient to be Admitted: No Counseled Patient/Family Regarding: Studies Performed, Diagnosis, Need For Followup, Rx Given - Disposition Referrals: Abhinav Campbell MD [Family Provider] - Carlito Nielsen III, MD [Staff Provider] - workers, comp [Other] Disposition: Routine/Home Disposition Time: 12:00 Condition: IMPROVED Additional Instructions: The emergency medical care you received today was directed at your acute symptoms. If you were prescribed any medication, please fill it and take as directed. Do not drive or drink alcohol when taking flexeril. It may take several days for your symptoms to resolve. Return to the Emergency Department if your symptoms worsen, do not improve, or if you have any other problems. Please contact your doctor in 2 days for re-evaluation and follow up / or call one of the physicians/clinics you have been referred to that are listed on the Patient Visit Information form that is included in your discharge packet. Bring any paperwork you were given at discharge with you along with any medications you are taking to your follow up visit. Our treatment cannot replace ongoing medical care by a primary care provider (PCP) outside of the emergency department. Prescriptions: Cyclobenzaprine [Cyclobenzaprine HCl] 10 mg PO TID PRN #12 tab PRN Reason: muscle relaxation Ibuprofen [Motrin Tab] 600 mg PO Q6 PRN #20 tab PRN Reason: Pain, Moderate (4-7) Instructions: Rotator Cuff Injury (DC), Shoulder Pain (DC) Forms: [facility] (Indonesian), [facility] School/Work Excuse Print Language: MAORI - POA Present On Arrival: None
--- NOTE | 2018-09-16 11:21 | RAD ---
Date of service: 09/16/2018 PROCEDURE: Radiographs of the Right Shoulder HISTORY: injury and pain COMPARISON: No prior. TECHNIQUE: 3 views obtained. FINDINGS: BONES: The apophysis appears unfused. Question if this is late fusion for this 28-year-old male patient or if no acute fracture appreciated. JOINTS: Normal. Glenohumeral and acromioclavicular joints preserved. No osteoarthritis. SOFT TISSUES: Normal. OTHER FINDINGS: None. IMPRESSION: No acute fracture or dislocation. Other findings as above.
== END 2018-09-16 12:21 | disposition home or self-care (01) ==
LOC: H.ER 09:50
DX: S49.91XA Unspecified injury of right shoulder and upper arm, initial encounter (principal); X50.9XXA Other and unspecified overexertion or strenuous movements or postures, initial encounter; Y99.0 Civilian activity done for income or pay
CPT/HCPCS: 73030; 96372; 99284; J1885